=== PATIENT | male | born 1960 | race Caucasian/White ===

== ENCOUNTER 2023-03-20 10:33 | Outpatient (OUT) | payer OTHER, SELFPAY ==
--- NOTE | 2023-03-20 10:41 | XR_ITS ---
[facility] [place] [id number] Patient Name: MARIANGEL VOSS MRN: [id number] date: 1960 Sex: M Assigned Patient Location: RAD Current Patient Location: [facility] Accession/Order Number: [id number] Exam Date: 03/20/2023 10:47 Report Date: 03/20/2023 11:09 At the request of: TAL LANDEROS Procedure: XR knee RT 4V STUDY: XR knee RT 4V, [id number] HISTORY: Right Knee Sprain COMPARISON: None FINDINGS: No acute fracture, dislocation, or suspicious osseous lesion. No significant osteoarthritis. There is a trace knee joint effusion. XR/XR knee RT 4V IMPRESSION: Trace knee joint effusion without acute fracture. Electronically authenticated by: SIOBHAN CHILEL Date: 03/20/2023 11:09
== END 2023-03-20 10:34 | disposition home or self-care (01) ==
PROVIDERS: PCP Family Medicine; Visit Provider Nurse Practitioner Family
DX: S83.91XA Sprain of unspecified site of right knee, initial encounter (principal); M25.461 Effusion, right knee
CPT/HCPCS: 73564

== ENCOUNTER 2023-04-24 07:39 | Outpatient (OUT) | payer OTHER, SELFPAY ==
--- OUTSIDE RECORDS SUMMARY | 2023-04-24 07:40 | XMS_ITS | CCD ---
Author Name Unknown Address [address] [place] [address] Organization [facility] Care Team Providers Care [employer] Sales Supervisor Name Role Phone ClemenciaRavin mcgee Unavailable ROSITA SHEPPARD Attending Unavailable MARY ANNA Referring Unavailable MARY ANNA Primary Care Unavailable Medications Current Medications Medication Drug Class(es) Dates Sig (Normalized) Sig (Original) Advair Diskus 500-50 MCG/DOSE (2 sources) Start: 10-01-2017 take 1 puff(s) by inhalation twice daily Advair Diskus 500-50 MCG/DOSE 1 puff Inhalation Twice a day for 90 day(s) Sep, Active [id number] actuat albuterol 0.09 mg/actuat metered dose inhaler (5 sources) beta2-Adrenergic Agonist Start: 10-18-2020 take 2 puff(s) by inhalation every six hours as needed Albuterol Sulfate HFA 108 (90 Base) MCG/ACT 2 puffs as needed Inhalation every 6 hrs for 30 days Sep, Active Start: 10-18-2020 take 2 puff(s) by in halation every six hours as needed Albuterol Sulfate HFA 108 (90 Base) MCG/ACT 2 puffs as needed Inhalation every 6 hrs for 30 days Sep, Active 60 actuat fluticasone propionate 0.5 mg/actuat / salmeterol 0.05 mg/actuat dry powder inhaler (4 sources) Corticosteroid, beta2-Adrenergic Agonist Start: 10-01-2017 take 1 puff(s) by inhalation twice daily Wixela Inhub 500-50 MCG/ACT 1 puff Inhalation Twice a day for 90 days Mar, Active nystatin [id number] unt/ml oral suspension (5 sources) Polyene Antifungal Start: 10-20-2019 take 5 mL by mouth four times daily as needed Nystatin 013495 UNIT/ML 5 ml Mouth/Throat Four times a day for 10 day(s) prn Sep, Active Start: 10-20-2019 take 5 mL by mouth f our times daily Nystatin 845460 UNIT/ML 5 ml Mouth/Throat Four times a day for 10 day(s) Sep, Active omeprazole 20 mg delayed release oral capsule (5 sources) Proton Pump Inhibitor Start: 05-17-2010 take 1 capsule by mouth every twelve hours Omeprazole 20 mg 1 Capsule Orally twice a day for 90 days CESILIA Apr, Active Start: 05-17-2010 take 1 capsule by mo uth every twenty-four hours Omeprazole 20 mg 1 Capsule Orally Once a day for 90 day(s) Apr, Active Problems Active Problems Problem Classification Problem Date Documented Date Episodic/Chronic Asthma (8 sources) Uncomplicated mild persistent asthma; Translations: [Mild persistent asthma, uncomplicated] Onset: 10-31-2021 Resolved: 10-31-2021 Chronic Esophageal disorders (8 sources) Gastroesophageal reflux disease; Translations: [Gastro-esophageal reflux disease without esophagitis] Onset: 10-31-2021 Resolved: 10-31-2021 Chronic Other lower respiratory disease (4 sources) Multiple nodules of lung; Translations: [Lung nodules] Episodic Spondylosis; intervertebral disc disorders; other back problems (1 source) Backache Onset: 03-01-2023 Episodic Unclassified (1 source) Low back pain, unspecified; Translations: [Low back pain, unspecified] Onset: 03-01-2023 Past or Other Problems Problem Classification Problem Date Documented Da te Episodic/Chronic Mycoses (1 source) Candidal stomatitis Onset: 10-31-2021 Resolved: 10-31-2021 Episodic Results Test Name Value Interpretation Reference Range Facil ity COMPREHENSIVE METABOLIC PANE Roc 05-25-2021 Albumin [Mass/Vol] 4.6 g/dL Normal 3.6-5.1 [facility] Comment on above: Performed By: #### 5 927, 83022, 1883 #### [facility] [address], [address] [place] [id number] Firestopper Technician: Rigo Penaloza MD Albumin/Globulin [Mass ratio] 1.6 {ratio} Normal 1.0-2.5 [facility] Comment on above: Performed By: #### 5 363, 87907, 7600 #### [facility] of [address], [address] [place] [address] Firestopper Technician: Rigo Penaloza MD ALP [Catalytic activity/Vol] 53 U/L Normal 35-144 [facility] Comment on above: Performed By: #### 5 363, 40628, 7600 #### [facility] of [address], [address] [place] [address] Firestopper Technician: Rigo Penaloza MD ALT [Catalytic activity/Vol] 20 U/L Normal 9-46 [facility] Comment on above: Performed By: #### 5 363, 36326, 7600 #### [facility] [address], [address] [place] [address] Firestopper Technician: Rigo Penaloza MD AST [Catalytic activity/Vol] 18 U/L Normal 10-35 [facility] Comment on above: Performed By: #### 5 363, 93465, 7600 #### [facility] [address], [address] [place] [address] Firestopper Technician: Rigo Penaloza MD Bilirubin [Mass/Vol] 0.4 mg/dL Normal 0.2-1.2 [facility] Comment on above: Performed By: #### 5 363, 30505, 7600 #### [facility] [address], [address] [place] [address] Firestopper Technician: Rigo Penaloza MD BUN/CREATININE RATIO NOT APPLICABLE Normal 6-22 [facility] Comment on above: Performed By: #### 5 363, 84680, 7600 #### [facility] [place] [address] Firestopper Technician: Rigo Penaloza MD Calcium [Mass/Vol] 9.9 mg/dL Normal 8.6-10.3 [facility] Comment on above: Performed By: #### 5 363, 44627, 7600 #### [facility] [address], [address] [place] [address] Firestopper Technician: Rigo Penaloza MD Chloride [Moles/Vol] 101 mmol/L Normal 98-110 [facility] Comment on above: Performed By: #### 5 363, 74458, 7600 #### [facility] [address], [address] [place] [address] Firestopper Technician: Rigo Penaloza MD CO2 [Moles/Vol] 27 mmol/L Normal 20-32 [facility] Comment on above: Performed By: #### 5 363, 35530, 7600 #### [facility] [address], [address] [place] [address] Firestopper Technician: Rigo Penaloza MD Creatinine [Mass/Vol] 0.89 mg/dL Normal 0.70-1.33 [facility] Comment on above: Result Comment: For patients >49 years of age, the reference limit for Creatinine is approximately 13% higher for people identified as -Bhutanese. Performed By: #### 5 363, 88232, 7600 #### [facility] [address], [address] [place] [address] Firestopper Technician: Rigo Penaloza MD eGFR NON-AFR. FRENCH 94 mL/min/1.73m2 Normal > OR = 60 [facility] Comment on above: Performed By: #### 5 363, 24244, 7600 #### [facility] [address], [address] [place] [address] Firestopper Technician: Rigo Penaloza MD GFR/1.73 sq M.predicted among blacks MDRD (S/P/Bld) [Vol rate/Area] 108 mL/min/{1.73_m2} Normal > OR = 60 [facility] Comment on above: Performed By: #### 5 363, 28667, 7600 #### [facility] [address], [address] [place] [address] Firestopper Technician: Rigo Penaloza MD Globulin (S) [Mass/Vol] 2.9 g/dL Normal 1.9-3.7 [facility] Comment on above: Performed By: #### 5 363, 11219, 7600 #### [facility] [place] [address] Firestopper Technician: Rigo Penaloza MD Glucose [Mass/Vol] 89 mg/dL Normal 65-99 [facility] Comment on above: Result Comment: Fasting reference interval Performed By: #### 5 363, 63396, 7600 #### [facility] [place] [address] Firestopper Technician: Rigo Penaloza MD Potassium [Moles/Vol] 4.5 mmol/L Normal 3.5-5.3 [facility] Comment on above: Performed By: #### 5 363, 19086, 7600 #### [facility] [place] [address] Firestopper Technician: Rigo Penaloza MD Protein [Mass/Vol] 7.5 g/dL Normal 6.1-8.1 [facility] Comment on above: Performed By: #### 5 363, 29391, 7600 #### [facility] [place] [address] Firestopper Technician: Rigo Penaloza MD Sodium [Moles/Vol] 138 mmol/L Normal 135-146 [facility] Comment on above: Performed By: #### 5 363, 94828, 7600 #### [facility] [place] [address] Firestopper Technician: Rigo Penaloza MD Urea nitrogen [Mass/Vol] 13 mg/dL Normal 7-25 [facility] Comment on above: Performed By: #### 5 363, 51416, 7600 #### [facility] [place] [address] Firestopper Technician: Rigo Penaloza MD LIPID PANEL, [facility] 03-3 Cholesterol [Mass/Vol] 226 mg/dL High <200 [facility] Comment on above: Order Comment: FASTI NG:YES FASTING: YES Performed By: #### 5 363, 67089, 7600 #### [facility] [address], [address] [place] [address] Firestopper Technician: Rigo Penaloza MD Cholesterol in HDL [Mass/Vol] 49 mg/dL Normal > OR = 40 [facility] Comment on above: Order Comment: FASTI NG:YES FASTING: YES Performed By: #### 5 363, 80696, 7600 #### [facility] [address], [address] [place] [address] Firestopper Technician: Rigo Penaloza MD Cholesterol in LDL [Mass/Vol] 150 mg/dL High [facility] Comment on above: Order Comment: FASTI NG:YES FASTING: YES Result Comment: Refe rence range: <100 Desirable range <100 mg/dL for primary prevention; <70 mg/dL for patients with CHD or diabetic patients with > or = 2 CHD risk factors. LDL-C is now calculated using the Alyssa calculation, which is a validated novel method providing better accuracy than the Friedewald equation in the estimation of LDL-C. Barney KERNS et al. ADRIAN. 2013;310(19): 5048-1117 (http://education.ice.DataLocker/faq/RVE285) Performed By: #### 5 363, 34381, 7600 #### [facility] [address], [address] [place] [address] Firestopper Technician: Rigo Penaloza MD Cholesterol.total/C holesterol in HDL [Mass ratio] 4.6 {ratio} Normal <5.0 [facility] Comment on above: Order Comment: FASTI NG:YES FASTING: YES Performed By: #### 5 363, 70316, 7600 #### [facility] [address], [address] [place] [address] Firestopper Technician: Rigo Penaloza MD NON HDL CHOLESTEROL 177 mg/dL (calc) High <130 [facility] Comment on above: Order Comment: FASTI NG:YES FASTING: YES Result Comment: For patients with diabetes plus 1 major ASCVD risk factor, treating to a non-HDL-C goal of <100 mg/dL (LDL-C of <70 mg/dL) is considered a therapeutic option. Performed By: #### 5 363, 47858, 7600 #### [facility] [address], [address] [place] [address] Firestopper Technician: Rigo Penaloza MD Triglyceride [Mass/Vol] 145 mg/dL Normal <150 [facility] Comment on above: Order Comment: FASTI NG:YES FASTING: YES Performed By: #### 5 363, 15747, 7600 #### [facility] [address], [address] [place] [address] Firestopper Technician: Rigo Penaloza MD PSA, TOTALon 05-25-2021 PSA, TOTAL 0.64 ng/mL Normal < OR = 4.00 [facility] Comment on above: Result Comment: The total PSA value from this assay system is standardized against the WHO standard. The test result will be approximately 20% lower when compared to the equimolar-standardized total PSA (Ricky Matt). Comparison of serial PSA results should be interpreted with this fact in mind. This test was performed using the Siemens chemiluminescent method. Values obtained from different assay methods cannot be used interchangeably. PSA levels, regardless of value, should not be interpreted as absolute evidence of the presence or absence of disease. Performed By: #### 5 363, 91948, 7600 #### [facility] [address], [address] [place] [address] Firestopper Technician: Rigo Penaloza MD Vital Signs Date Time Vital Sign Value Performing Clinician Leo herron 10-31-2021 17:00-0400 Body height 182.88 cm Ravin Khanna Other [facility] Other 10-31-2021 17:00-0400 Body mass index (BMI) [Ratio] 27.26 kg/m2 Ravin Khanna Other [facility] Other 10-31-2021 17:00-0400 Body temperature 97.3 [degF] Ravin Khanna Other [facility] Other 10-31-2021 17:00-0400 Body weight 91.17 kg Janer Clemencia Other [facility] Other 10-31-2021 17:00-0400 Diastolic blood pressure 77 mm[Hg] Janer Clemencia Other [facility] Other 10-31-2021 17:00-0400 Respiratory rate 20 /min Janer Clemencia Other [facility] Other 10-31-2021 17:00-0400 SaO2% (BldA) [Mass fraction] 98 % Janer Clemencia Other [facility] Other 10-31-2021 17:00-0400 Systolic blood pressure 123 mm[Hg] Janer Clemencia Other [facility] Other Encounters Encounter Date Encounter Type Care Provider Facility Start: 03-29-2023 End: 03-29-2023 ambulatory Janer Clemencia Other [facility] Other Start: 03-29-2023 Telephone encounter Ravin vuongo [facility] Start: 03-26-2023 End: 03-26-2023 ambulatory Christanumer Clemencia Other [facility] Other Start: 03-26-2023 Telephone encounter Ravin vuongo [facility] Start: 03-01-2023 End: 03-01-2023 ambulatory [facility] Start: 08-13-2022 End: 08-13-2022 ambulatory Christanumer Clemencia Other [facility] Other Start: 08-13-2022 Telephone encounter Ravin paul [facility] Start: 05-14-2022 End: 05-14-2022 ambulatory Ravin Kahnna Other [facility] Other Start: 05-14-2022 Telephone encounter Ravin paul [facility] Start: 10-31-2021 End: 10-31-2021 ambulatory Ravin Khanna Other [facility] Other Start: 10-31-2021 Office outpatient visit 15 minutes Ravin Khanna [facility] Immunizations Immunization Date Immunization Notes Care Provider Fa cility 08-24-2021 COVID-19 Vaccine Moderna - Documentation Purposes Only Ravin Khanna Other [facility] Other 01-04-2021 COVID-19 Vaccine Moderna - Documentation Purposes Only Ravin Khanna Other [facility] Other 05-20-2020 COVID-19 Moderna Ravin Oquendodano Other [facility] Other 04-14-2020 COVID-19 Moderna Ravin Oquendodano Other [facility] Other Payers Date Payer Category Payer Private Health Insurance [id number] 2018 Unknown [id number] 1960 Unknown [id number] Social History Date Type Detail Facility Unknown if ever smoked [facility] Other Sex Assigned At Sex Assigned At Bir th [facility] Other Evaluation note 03-26-2023 Note Date & Type Note Facility 03-26-2023 Evaluation note Encounter Date Diagnosis Assessment Notes Feb, Mild persistent asthma, uncomplicated (ICD-10 - J45.30) Feb, Gastroesophageal reflux disease (ICD-10 - K21.9) [facility] Other Evaluation note 08-13-2022 Note Date & Type Note Facility 08-13-2022 Evaluation note Encounter Date Diagnosis Assessment Notes Jul, Mild persistent asthma, uncomplicated (ICD-10 - J45.30) [facility] Other Evaluation note 05-14-2022 Note Date & Type Note Facility 05-14-2022 Evaluation note Encounter Date Diagnosis Assessment Notes Apr, Gastroesophageal reflux disease (ICD-10 - K21.9) [facility] Other Evaluation note 10-31-2021 Note Date & Type Note Facility 10-31-2021 Evaluation note Encounter Date Diagnosis Assessment Notes Oct, Mild persistent asthma, uncomplicated (ICD-10 - J45.30) Oct, Gastroesophageal reflux disease (ICD-10 - K21.9) Oct, Oropharyngeal candidiasis (ICD-10 - B37.0) [facility] Other History general Narrative - Reported 03-04-2021 Note Date & Type Note Facility 03-04-2021 History general N arrative - Reported Type Medical History asthma Medical History Esophageal reflux Medical History Covid positive 03/04/2021 and 10/18 Surgical History HERNIA Surgical History CYSTECTOMY [facility] Other Evaluation note Note Date & Type Note Facility Evaluation note No Information [facility] Other Summary Purpose Family History No Family History Records FoundNo Family History Records Found Advance Directives No Advanced Directives Records FoundNo Advanced Directives Records Found Additional Source Comments (unrecognized sect ion and content) No Status Records FoundNo Status Records Found INFORMATION SOURCE (unrecogn ized section and content) DATE CREATED AUTHOR 05/26/2021 [facility] DATE CREATED AUTHOR AUTHOR'S ORGANIZ ATION 03/03/2023 [facility] REASON FOR VISIT (unrecogniz ed section and content) 1 year f/urefillRefills- Adv airNo [id number] Days FOR RECORDS PERTAINING TO PATIENTS WHO ARE OR HAVE BEEN ENROLLED IN A CHEMICAL DEPENDENCY/SUBSTANCEABUSE PROGRAM, SOME INFORMATION MAY BE OMITTED. This clinical summary was aggregated from multiple sources. Caution should be exercised in using it in the provision of clinical care. This summary normalizes information from multiple sources, and as a consequence, information in this document may materially change the coding, format and clinical context of patient data. In addition, data may be omitted in some cases. CLINICAL DECISIONS SHOULD BE BASED ON THE PRIMARY CLINICAL RECORDS. [facility]. provides no warranty or guarantee of the accuracy or completeness of information in this document.
--- NOTE | 2023-04-24 07:41 | MR_ITS ---
[address] [address] Patient Name: MARIANGEL VOSS MRN: [id number] date: 1960 Sex: M Assigned Patient Location: MRI Current Patient Location: MRI Accession/Order Number: [id number] Exam Date: 04/24/2023 08:10 Report Date: 04/24/2023 10:18 At the request of: TAL LANDEROS Procedure: MR knee RT wo con EXAMINATION: MR knee RT wo con HISTORY: Right Knee Sprain S83.91XA COMPARISON: No relevant comparison available. TECHNIQUE: A complete multi-planar MRI was performed. FINDINGS: MEDIAL COMPARTMENT MEDIAL MENISCUS: Increased signal in the posterior horn consistent with myxoid degeneration, but no rafa tear. CARTILAGE: No visible defect. BONES: No marrow pathology, fracture, or significant arthropathy. MCL AND MEDIAL CAPSULE: Normal medial collateral ligament and medial capsule. LATERAL COMPARTMENT LATERAL MENISCUS: No visible tear or significant degeneration. CARTILAGE: No visible defect. BONES: No marrow pathology, fracture, or significant arthropathy. LCL/POSTEROLAT COMPLEX: Normal lateral collateral ligament, fascicles, lateral capsule and ligaments. ANTERIOR COMPARTMENT PATELLA: No marrow pathology, fracture, or significant arthropathy. CARTILAGE: Grade IV chondromalacia lateral patellar facet TENDONS: Normal. EFFUSION: None. No synovitis or loose bodies. ACL: Increased signal and thickening mid to distal ligament PCL: Normal appearing ligament. MENISCOFEMORAL: Normal meniscofemoral ligaments. OTHER: Negative. MR/MR knee RT wo con IMPRESSION: Sprain of the mid to distal anterior cruciate ligament Grade IV chondromalacia lateral patellar facet Electronically authenticated by: MCKAY CARPENTER Date: 04/24/2023 10:18
--- NOTE | 2023-04-24 07:51 | XR_ITS ---
[address] [address] Patient Name: MARIANGEL VOSS MRN: [id number] date: 1960 Sex: M Assigned Patient Location: MRI Current Patient Location: MRI Accession/Order Number: [id number] Exam Date: 04/24/2023 07:55 Report Date: 04/24/2023 08:04 At the request of: TAL LANDEROS Procedure: XR foreign body eye EXAMINATION: XR foreign body eye HISTORY: Foreign Body Eye COMPARISON: No relevant comparison available. FINDINGS: ORBITS: Negative for a metallic foreign body. OTHER: Negative. XR/XR foreign body eye IMPRESSION: No metallic foreign body in the orbits Electronically authenticated by: MCKAY CARPENTER Date: 04/24/2023 08:04
== END 2023-04-24 07:40 | disposition home or self-care (01) ==
LOC: MRI 07:39
PROVIDERS: PCP Family Medicine; Visit Provider Nurse Practitioner Family
DX: S83.91XA Sprain of unspecified site of right knee, initial encounter (principal)
CPT/HCPCS: 70030; 73721

== ENCOUNTER 2023-05-22 15:15 | Outpatient (RCR) | payer OTHER, SELFPAY | END 2023-06-08 15:57 | disposition home or self-care (01) | LOC: PT 15:15 | PROVIDERS: PCP Family Medicine; Visit Provider Nurse Practitioner Family | DX: S83.91XD Sprain of unspecified site of right knee, subsequent encounter (principal) | CPT/HCPCS: 97010; 97014; 97035; 97110; 97140; 97162 ==

== ENCOUNTER 2023-11-29 09:14 | Outpatient (OUT) | payer OTHER, SELFPAY ==
--- OUTSIDE RECORDS SUMMARY | 2023-11-29 09:26 | XMS_ITS | CCD ---
Author Organization [facility] Inform ion Partnership [facility] Care Team Providers Care Stratigrapher Name Role Phone Ravin Khanna ROSITA SHEPPARD Attending Unavailable FURLONG, VIN Moore Referring Unavailable FURLONG, VIN G Primary Care Unavailable DORIS ALLEN Attending Unavailable FURLONG, VIN G Referring Unavailable FURLONG, VIN G Primary Care Unavailable DORIS ALLEN Attending Unavailable FURLONG, VIN G Referring Unavailable FURLONG, VIN G Primary Care Unavailable FURLONG, VIN G Attending Unavailable FURLONG, VIN G Referring Unavailable FURLONG, VIN G Primary Care Unavailable FURLONG, VIN G Referring Unavailable FURLONG, VIN G Primary Care Unavailable Medications Current Medications Medication Drug Class(es) Dates Sig (Normalized) Sig (Original) Advair Diskus 500-50 MCG/DOSE (2 sources) Start: 10-01-2017 take 1 puff(s) by inhalation twice daily Advair Diskus 500-50 MCG/DOSE 1 puff Inhalation Twice a day for 90 day(s) Sep, Active [id number] 200 actuat albuterol 0.09 mg/actuat metered dose inhaler (7 sources) beta2-Adrenergic Agonist Start: 10-16-2023 End: 10-29-2023 take 2 puff(s) by inhalation every six hours as needed Albuterol Sulfate Active 2 PUFF INHALATION Every 6 hours October 29, 2023 3:37pm [employer] puffs as needed Inhalation every 6 hrs; Note: Source Status: Taking; Refills: 11; Provider: Clemencia Dotson Start: 10-18-2020 take 2 puff(s) by in [...] 6 hrs for 30 days Sep, Active Fluticasone Propion-Salmeterol (5 sources) Corticosteroid, beta2-Adrenergic Agonist Start: 10-16-2023 Fluticasone Propion-Salmeterol (Wixela Inhub) 500-50 mcg/dose blister with device Active 1 INH INHALATION Twice daily October 16, 2023 12:00am Start: 10-01-2017 take 1 puff(s) by in halation twice daily Wixela Inhub 500-50 MCG/ACT 1 puff Inhalation Twice a day for 90 days Mar, Active naratriptan 2.5 mg oral tablet (1 source) Serotonin-1b and Serotonin-1d Receptor Agonist Start: 10-29-2023 take 2.5 mg by mouth once Naratriptan Active 2.5 MG PO Once October 29, 2023 12:00am nystatin [id number] unt/ml oral suspension (5 sources) Polyene Antifungal Start: 10-20-2019 take 5 mL by mouth four times daily as needed Nystatin [id number] UNIT/ML 5 ml Mouth/Throat Four times a day for 10 day(s) prn Sep, Active Start: 10-20-2019 take 5 mL by mouth f our times daily Nystatin 203208 UNIT/ML 5 ml Mouth/Throat Four times a day for 10 day(s) Sep, Active omeprazole 20 mg delayed release oral capsule (6 sources) Proton Pump Inhibitor Start: 10-16-2023 take 1 capsule by mouth twice daily Omeprazole Active 1 CAP PO Twice daily October 16, 2023 12:00am [employer] Capsule Orally twice a day; Note: Source Status: TakingDAW; Refills: 3; Provider: Clemencia Dotson Start: 05-17-2010 take 1 capsule by [facility] every twelve hours Omeprazole 20 mg 1 Capsule Orally twice a day for 90 days CESILIA Apr, Active Start: 05-17-2010 take 1 capsule by [facility] every twenty-four hours Omeprazole 20 mg 1 Capsule Orally Once a day for 90 day(s) Apr, Active Problems Active Problems Problem Classification Problem Date Documented Date Episodic/Chronic Asthma (10 sources) Uncomplicated mild persistent asthma; Translations: [Mild persistent asthma, uncomplicated] Onset: 10-31-2021 Resolved: 10-31-2021 Chronic Bacterial infection; unspecified site (1 source) Other specified bacterial agents as the cause of diseases classified elsewhere; Translations: [Other specified bacterial agents as the cause of diseases classified elsewhere] Onset: 10-01-2023 Episodic Esophageal disorders (10 sources) Gastroesophageal reflux disease; Translations: [Gastro-esophageal reflux disease without esophagitis] Onset: 10-31-2021 Resolved: 10-31-2021 Chronic Headache; including migraine (2 sources) Migraine with aura, not intractable, without status migrainosus; Translations: [Cluster headache syndrome, unspecified, not intractable] Onset: 10-01-2023 Chronic Headache; including migraine (1 source) Headache Onset: 10-01-2023 Episodic Other lower respiratory disease (4 sources) Multiple nodules of lung; Translations: [Lung nodules] Episodic Other screening for suspected conditions (not mental disorders or infectious disease) (2 sources) Encounter for screening for malignant neoplasm of prostate; Translations: [Encounter for screening for malignant neoplasm of prostate] Onset: 11-11-2023 Episodic Other upper respiratory infections (1 source) Acute sinusitis, unspecified; Translations: [Acute sinusitis, unspecified] Onset: 10-01-2023 Episodic Unclassified (1 source) Annual Exam Onset: 11-11-2023 Unclassified (1 source) Low back pain, unspecified; Translations: [Low back pain, unspecified] Onset: 03-01-2023 Past or Other Problems Problem Classification Problem Date Documented Da te Episodic/Chronic Mycoses (1 source) Candidal stomatitis Onset: 10-31-2021 Resolved: 10-31-2021 Episodic Other nutritional; endocrine; and metabolic disorders (1 source) Overweight; Translations: [Overweight] Onset: 01-12-2022 Episodic Spondylosis; intervertebral disc disorders; other back problems (1 source) Backache Onset: 03-01-2023 Episodic Results Test Name Value Interpretation Reference Range Facility COMPREHENSIVE METABOLIC PANE Roc 11-11-2023 Albumin [Mass/Vol] 4.6 g/dL Normal 3.2-5.3 [facility] Comment on above: Performed By: #### C JAYDON, 2857-1, 48039-8 #### [facility] ([id number]) [address], [address] [place] [address] ALP [Catalytic activity/Vol] 44 U/L Normal 39-130 [facility] Comment on above: Performed By: #### Humaira INTERIANO, 2857-1, 88086-1 #### [facility] ([id number]) [address], [address] [place] [address] ALT [Catalytic activity/Vol] 24 U/L Normal 0-40 [facility] Comment on above: Performed By: #### Humaira INTERIANO, 2857-1, 52900-7 #### [facility] ([id number]) [address], [address] [place] [address] Anion gap [Moles/Vol] 11 mmol/L Normal 5-15 [facility] Comment on above: Performed By: #### C JAYDON, 2857-1, 41556-8 #### [facility] ([id number]) [address], [address] [place] [address] AST [Catalytic activity/Vol] 24 U/L Normal 0-41 [facility] Comment on above: Performed By: #### Humaira INTERIANO, 2857-1, 01102-9 #### [facility] ([id number]) [address], [address] [place] [address] Bilirubin [Mass/Vol] 0.5 mg/dL Normal 0.3-1.2 [facility] Comment on above: Performed By: #### Humaira INTERIANO, 2857-1, 69362-6 #### [facility] ([id number]) [address], [address] [place] [address] Calcium [Mass/Vol] 9.6 mg/dL Normal 8.5-10.5 [facility] Comment on above: Performed By: #### Humaira INTERIANO, 2857-1, 26890-8 #### [facility] ([id number]) [address], [address] [place] [address] Chloride [Moles/Vol] 101 mmol/L Normal 98-109 [facility] Comment on above: Performed By: #### Humaira INTERIANO, 2857-1, 69804-2 #### [facility] ([id number]) [address], [address] [place] [address] CO2 [Moles/Vol] 26 mmol/L Normal 22-32 [facility] Comment on above: Performed By: #### Humaira INTERIANO, 2857-1, 72299-8 #### [facility] ([id number]) [address], [address] [place] [address] Creatinine [Mass/Vol] 0.81 mg/dL Normal 0.60-1.30 [facility] Comment on above: Result Comment: METH OD TRACEABLE TO IDMS STANDARD Performed By: #### Humaira INTERIANO, 2856-, 98535-2 #### [facility] ([id number]) [address], [address] [place] [address] eGFR (CKD-EPI) NON-RACE DEPENDENT >90 Normal >59 [facility] Comment on above: Result Comment: Reported eGFR is based on the CKD-EPI 1 equation that does not use a race coefficient. Performed By: #### Humaira INTERIANO, 2857-1, 36788-8 #### [facility] ([id number]) [address], [address] [place] [address] Glucose [Mass/Vol] 92 mg/dL Normal 65-99 [facility] Comment on above: Performed By: #### Humaira INTERIANO, 2857-1, 49834-6 #### [facility] ([id number]) [address], [address] [place] [address] Potassium [Moles/Vol] 4.1 mmol/L Normal 3.5-5.0 [facility] Comment on above: Performed By: #### Humaira INTERIANO, 2857-1, 86069-0 #### [facility] ([id number]) [address], [address] [place] [address] Protein [Mass/Vol] 7.9 g/dL Normal 6.0-8.0 [facility] Comment on above: Performed By: #### Humaira INTERIANO, 2857-1, 30152-4 #### [facility] ([id number]) [address], [facility] [address] [place] [address] Sodium [Moles/Vol] 138 mmol/L Normal 134-146 [facility] Comment on above: Performed By: #### Humaira INTERIANO, 2857-1, 68155-6 #### [facility] ([id number]) [address], [address] [place] [address] Urea nitrogen [Mass/Vol] 10 mg/dL Normal 5-27 [facility] Comment on above: Performed By: #### Humaira INTERIANO, 2857-1, 08496-3 #### [facility] ([id number]) [address], [address] [place] [address] Lipid 1996 panelon 4 Cholesterol [Mass/Vol] 186 mg/dL Normal 150-200 [facility] Comment on above: Performed By: #### Humaira INTERIANO, 2857-1, 01512-6 #### [facility] ([id number]) [address], [address] [place] [address] Cholesterol in HDL [Mass/Vol] 57 mg/dL Normal >39 [facility] Comment on above: Result Comment: HDL <40 mg/dL - High Risk HDL > or = 40mg/dL- Desirable HDL >60 mg/dL - Negative Risk Performed By: #### Humaira INTERIANO, 2857-1, 32293-7 #### [facility] ([id number]) [address] [address] Cholesterol in LDL [Mass/Vol] 108 mg/dL Normal <130 [facility] Comment on above: Result Comment: LDL <100 mg/dL - Desirable LDL >160 mg/dL - High Risk Performed By: #### Humaira INTERIANO, 2857-1, 68587-9 #### [facility] ([id number]) [address] [address] Cholesterol in VLDL [Mass/Vol] 21 mg/dL Normal 0-30 [facility] Comment on above: Performed By: #### Humaira INTERIANO, 2857-1, 01812-6 #### [facility] ([id number]) [address] [address] CHOLESTEROL:HDL 3.3 Normal 1.0-5.0 [facility] Comment on above: Performed By: #### Humaira INTERIANO, 2857-1, 47723-6 #### [facility] ([id number]) [address] [address] Triglyceride [Mass/Vol] 107 mg/dL Normal 27-150 [facility] Comment on above: Performed By: #### Humaira INTERIANO, 2857-1, 35465-8 #### [facility] ([id number]) [address] [address] Prostate specific Ag [Mass/V ol]on 11-11-2023 PSA SCREEN 1.28 ng/mL Normal 0.00-4.00 [facility] Comment on above: Result Comment: The method used for this test is Ricky [employer] DXI chemiluminescent immunoassay. Values obtained by different assay methods cannot be used interchangeably. Performed By: #### C , 2857-1, 56631-0 #### [facility] ([id number]) [address] [place] [address], [address] 05-25-2021 Albumin [Mass/Vol] 4.6 g/dL Normal 3.6-5.1 [facility] Comment on above: Performed By: #### 5 363, 24109, 7600 #### [facility] of [address], [address] [place] [address] Taxi Dancer: Rigo Penaloza MD Albumin/Globulin [Mass ratio] 1.6 {ratio} Normal 1.0-2.5 [facility] Comment on above: Performed By: #### 5 363, 00491, 7600 #### [facility] [place] [address] Taxi Dancer: Rigo Penaloza MD ALP [Catalytic activity/Vol] 53 U/L Normal 35-144 [facility] Comment on above: Performed By: #### 5 363, 00742, 0 #### [facility] [place] [address] Taxi Dancer: Rigo Penaloza MD ALT [Catalytic activity/Vol] 20 U/L Normal 9-46 [facility] Comment on above: Performed By: #### 5 363, 78973, 0 #### [facility] [place] [address] Taxi Dancer: Rigo Penaloza MD AST [Catalytic activity/Vol] 18 U/L Normal 10-35 [facility] Comment on above: Performed By: #### 5 363, 97353, 7600 #### [facility] [place] [address] Taxi Dancer: Rigo Penaloza MD Bilirubin [Mass/Vol] 0.4 mg/dL Normal 0.2-1.2 [facility] Comment on above: Performed By: #### 5 363, 09011, 7600 #### [facility] of [address], [address] [place] [address] Taxi Dancer: Rigo Penaloza MD BUN/CREATININE RATIO NOT APPLICABLE Normal 6-22 [facility] Comment on above: Performed By: #### 5 363, 33315, 7600 #### [facility] of [address], [address] [place] [address] Taxi Dancer: Rigo Penaloza MD Calcium [Mass/Vol] 9.9 mg/dL Normal 8.6-10.3 [facility] Comment on above: Performed By: #### 5 363, 53160, 7600 #### [facility] of [address], [address] [place] [address] Taxi Dancer: Rigo Penaloza MD Chloride [Moles/Vol] 101 mmol/L Normal 98-110 [facility] Comment on above: Performed By: #### 5 363, 71830, 7600 #### [facility] of [address], [address] [place] [address] Taxi Dancer: Rigo Penaloza MD CO2 [Moles/Vol] 27 mmol/L Normal 20-32 [facility] Comment on above: Performed By: #### 5 363, 48520, 7600 #### [facility] of [address], [address] [place] [address] Taxi Dancer: Rigo Penaloza MD Creatinine [Mass/Vol] 0.89 mg/dL Normal 0.70-1.33 [facility] Comment on above: Result Comment: For patients >49 years of age, the reference limit for Creatinine is approximately 13% higher for people identified as -Algerian. Performed By: #### 5 363, 60481, 7600 #### [facility] of [address], [address] [place] [address] Taxi Dancer: Rigo Penaloza MD eGFR NON-AFR. BRUNEIAN 94 mL/min/1.73m2 Normal > OR = 60 [facility] Comment on above: Performed By: #### 5 363, 22301, 7600 #### [facility] [address] [address] Taxi Dancer: Rigo Penaloza MD GFR/1.73 sq M.predicted among blacks MDRD (S/P/Bld) [Vol rate/Area] 108 mL/min/{1.73_m2} Normal > OR = 60 [facility] Comment on above: Performed By: #### 5 363, 33772, 7600 #### [facility] [address], [address] [place] [address] Taxi Dancer: Rigo Penaloza MD Globulin (S) [Mass/Vol] 2.9 g/dL Normal 1.9-3.7 [facility] Comment on above: Performed By: #### 5 363, 18451, 7600 #### [facility] [place] [address] Taxi Dancer: Rigo Penaloza MD Glucose [Mass/Vol] 89 mg/dL Normal 65-99 [facility] Comment on above: Result Comment: Fasting reference interval Performed By: #### 5 363, 07219, 7600 #### [facility] [place] [address] Taxi Dancer: Rigo Penaloza MD Potassium [Moles/Vol] 4.5 mmol/L Normal 3.5-5.3 [facility] Comment on above: Performed By: #### 5 363, 73248, 7600 #### [facility] [place] [address] Taxi Dancer: Rigo Penaloza MD Protein [Mass/Vol] 7.5 g/dL Normal 6.1-8.1 [facility] Comment on above: Performed By: #### 5 363, 85649, 7600 #### [facility] [place] [address] Taxi Dancer: Rigo Penaloza MD Sodium [Moles/Vol] 138 mmol/L Normal 135-146 [facility] Comment on above: Performed By: #### 5 363, 90301, 7600 #### [facility] [place] [address] Taxi Dancer: Rigo Penaloza MD Urea nitrogen [Mass/Vol] 13 mg/dL Normal 7-25 [facility] Comment on above: Performed By: #### 5 363, 91583, 7600 #### [facility] [address], [address] [place] [address] Taxi Dancer: Rigo Penaloza MD LIPID PANEL, [facility] 03-3 Cholesterol [Mass/Vol] 226 mg/dL High <200 [facility] Comment on above: Order Comment: FASTI NG:YES FASTING: YES Performed By: #### 5 363, 27728, 7600 #### [facility] [address], [address] [place] [address] Taxi Dancer: Rigo Penaloza MD Cholesterol in HDL [Mass/Vol] 49 mg/dL Normal > OR = 40 [facility] Comment on above: Order Comment: FASTI NG:YES FASTING: YES Performed By: #### 5 363, 25853, 0 #### [facility] [address], [address] [place] [address] Taxi Dancer: Rigo Penaloza MD Cholesterol in LDL [Mass/Vol] 150 mg/dL High [facility] Comment on above: Order Comment: [...] LDL-C. Barney KERNS et al. ADRIAN. 2013;310(19): 6596-6139 (http://education.Dial2Do.[employer]/faq/DLP402) Performed By: #### 5 363, 59350, 7600 #### [facility] [address], [address] [place] [address] Taxi Dancer: Rigo Penaloza MD Cholesterol.total/C holesterol in HDL [Mass ratio] 4.6 {ratio} Normal <5.0 [facility] Comment on above: Order Comment: FASTI NG:YES FASTING: YES Performed By: #### 5 363, 70359, 7600 #### [facility] [address], [address] [place] [address] Taxi Dancer: Rigo Penaloza MD NON HDL CHOLESTEROL 177 mg/dL (calc) High <130 [facility] Comment on above: Order Comment: FASTI NG:YES FASTING: YES Result Comment: For patients with diabetes plus 1 major ASCVD risk factor, treating to a non-HDL-C goal of <100 mg/dL (LDL-C of <70 mg/dL) is considered a therapeutic option. Performed By: #### 5 363, 15234, 7600 #### [facility] [address], [address] [place] [address] Taxi Dancer: Rigo Penaloza MD Triglyceride [Mass/Vol] 145 mg/dL Normal <150 [facility] Comment on above: Order Comment: FASTI NG:YES FASTING: YES Performed By: #### 5 363, 84997, 7600 #### [facility] [address], [address] [place] [address] Taxi Dancer: Rigo Penaloza MD PSA, TOTALon 05-25-2021 PSA, TOTAL 0.64 ng/mL Normal < OR = 4.00 [facility] Comment on above: Result Comment: The total PSA value from this assay system is standardized against the WHO standard. The test result will be approximately 20% lower when compared to the equimolar-standardized total PSA ([place]). Comparison of serial PSA results should be interpreted with this fact in mind. This test was performed using the Siemens chemiluminescent method. Values obtained from different assay methods cannot be used interchangeably. PSA levels, regardless of value, should not be interpreted as absolute evidence of the presence or absence of disease. Performed By: #### 5 363, 75007, 7600 #### [facility] [address], [address] [place] [address] Taxi Dancer: Rigo Penaloza MD Vital Signs Date Time Vital Sign Value Performing Clinician Faci lity 10-29-2023 15:46-0400 Body height 182.88 cm [facility] 10-29-2023 15:46-0400 Body mass index (BMI) [Ratio] 27.4 kg/m2 [facility] 10-29-2023 15:46-0400 Body temperature 98.8 [degF] [facility] 10-29-2023 15:46-0400 Body weight 91.85 kg [facility] 10-29-2023 15:46-0400 Heart rate 75 /min [facility] 10-29-2023 15:46-0400 Respiratory rate 20 /min [facility] 10-29-2023 15:46-0400 SaO2% (BldA) [Mass fraction] 96 % [facility] 10-31-2021 17:00-0400 Body height 182.88 cm Ravin Khanna Other [facility] Other 10-31-2021 17:00-0400 Body mass index (BMI) [Ratio] 27.26 kg/m2 Ravin Khanna Other [facility] [facility] Other 10-31-2021 17:00-0400 Body temperature 97.3 [degF] Ravin Khanna Other [facility] Other 10-31-2021 17:00-0400 Body weight 91.17 kg Ravin Khanna Other [facility] Other 10-31-2021 17:00-0400 Diastolic blood pressure 77 mm[Hg] Ravin Oquendodano Other [facility] Other 10-31-2021 17:00-0400 Respiratory rate 20 /min Ravin Thorpeno Other [facility] Other 10-31-2021 17:00-0400 SaO2% (BldA) [Mass fraction] 98 % Ravin Khanna Other [employer] [facility] Other 10-31-2021 17:00-0400 Systolic blood pressure 123 mm[Hg] Ravin Khanna Other [facility] Other Encounters Encounter Date Encounter Type Care Provider Facility Start: 11-11-2023 End: 11-11-2023 ambulatory [facility] Start: 11-11-2023 Encounter for genera l adult medical examination without abnormal findings [facility] Start: 11-11-2023 End: 11-11-2023 ambulatory [facility] Start: 11-11-2023 Encounter for genera l adult medical examination without abnormal findings [facility] Start: 10-30-2023 End: 10-30-2023 ambulatory [facility] Start: 10-29-2023 End: 10-29-2023 ambulatory [facility] Work Phone: Start: 10-29-2023 End: 10-29-2023 Patient encounter procedure [facility] Work Phone: Start: 10-01-2023 End: 10-01-2023 ambulatory [facility] Start: 03-29-2023 End: 03-29-2023 ambulatory Ravin Khanna Other [facility] [facility] Other Start: 03-29-2023 Telephone encounter Ravin paul [facility] Start: 03-26-2023 End: 03-26-2023 ambulatory Ravin Khanna Other [facility] Other Start: 03-26-2023 Telephone encounter Ravin paul [facility] Start: 03-01-2023 End: 03-01-[address] [facility] Start: 08-13-2022 End: 08-13-2022 ambulatory Christalexandra Oquendodano Other [facility] Other Start: 08-13-2022 Telephone encounter Ravin vuongo [facility] Start: 05-14-2022 End: 05-14-2022 ambulatory Christanumer Clemencia Other [facility] Other Start: 05-14-2022 Telephone encounter Ravin vuongo [facility] Start: 10-31-2021 End: 10-31-2021 ambulatory Christanumer Clemencia Other [facility] Other Start: 10-31-2021 Office outpatient visit 15 minutes Christopher Clemencia [facility] Procedures Date Procedure Procedure Detail Performing Clinician Start: 10-30-2023 Follow-up visit Follow-up DORIS ALLEN Immunizations Immunization Date Immunization Notes Care Provider Fa [facility] 08-24-2021 COVID-19 Vaccine Moderna - Documentation Purposes Only Christopher Clemencia Other [facility] 01-04-2021 COVID-19 Vaccine Moderna - Documentation Purposes Only Christopher Clemencia Other [facility] 05-20-2020 COVID-19 Moderna Christopher Clemencia Other [facility] 04-14-2020 COVID-19 Moderna Christopher Clemencia Other [facility] Payers Date Payer Category Payer Private Health Insurance [id number] 2018 Unknown [id number] 2. [id number] 1961 Unknown [id number] 2.16.8 [id number] 1961 Unknown [id number] 2.16.8 [id number] 1961 Unknown [id number] 2.16.8 [id number] 1961 Unknown [id number] 2.16.84 [id number] 1961 Unknown [id number] 2.16.8 [id number] Unknown [facility] [id number] Social History Date Type Detail Facility Unknown if ever smoked [facility] Other Sex Assigned At Sex Assigned At Bir th [facility] Other Start: 10-29-2023 Tobacco smoking status NHIS Ex-smoker (finding) [facility] Start: 1960 Sex Assigned At Male [facility] Evaluation note 03-26-2023 Note Date & Type Note Facility 03-26-2023 Evaluation note Encounter Date Diagnosis Assessment Notes Feb, Mild persistent asthma, uncomplicated (ICD-10 - J45.30) Feb, Gastroesophageal reflux disease (ICD-10 - K21.9) [facility] Other Evaluation note 08-13-2022 Note Date & Type Note Facility 08-13-2022 Evaluation note Encounter Date Diagnosis Assessment Notes Jul, Mild persistent asthma, uncomplicated (ICD-10 - J45.30) [facility] Other Evaluation note 05-14-2022 Note Date & Type Note Facility 05-14-2022 Evaluation note Encounter Date Diagnosis Assessment Notes Apr, Gastroesophageal reflux disease (ICD-10 - K21.9) [facility] Other Evaluation note 10-31-2021 Note Date & Type Note Facility 10-31-2021 Evaluation note Encounter Date Diagnosis Assessment Notes Oct, Mild persistent asthma, uncomplicated (ICD-10 - J45.30) Oct, Gastroesophageal reflux disease (ICD-10 - K21.9) Oct, Oropharyngeal candidiasis (ICD-10 - B37.0) [facility] Other History general Narrative - Reported 03-04-2021 Note Date & Type Note Facility 03-04-2021 History general N arrative - Reported Type Medical History asthma Medical History Esophageal reflux Medical History Covid positive 03/04/2021 and 10/18 Surgical History HERNIA Surgical History CYSTECTOMY [facility] Other Evaluation note Note Date & Type Note Facility Evaluation note No Information [facility] Other Evaluation note Note Date & Type Note Facility Evaluation note Diagnosis Onset Date GERD (gastroesophageal reflux disease) acute Mild persistent asthma, uncomplicated acute [facility] Work Phone: Summary Purpose Family History No Family History Records Found Relationship Condition Age at Onset Recorded Date/T xenia brother Unknown Malignant neoplasm Unknown Non-Hodgkin's lymphoma Unknown sister Malignant neoplasm of breast Unknown Advance Directives No Advanced Directives Records Found Advance Directive Response Recorded Date/ Time Advance Directives Yes October 3:17pm Chief Complaint and Reason for Visit Chief Complaint CEA: 1 yr f/u Cough Allergic Rhinitis, Sleep Apnea Reason for Visit GERD (gastroesophage al reflux disease) Mild persistent asthma, uncomplicated Additional Source Comments (unrecognized sect ion and content) No Status Records FoundNo Status Records FoundNo Status Records Found INFORMATION SOURCE (unrecogn ized section and content) DATE CREATED AUTHOR 05/26/2021 [facility] DATE CREATED AUTHOR AUTHOR'S ORGANIZ ATION 11/12/2023 [facility] DATE CREATED AUTHOR AUTHOR'S ORGANIZ ATION 11/13/2023 [facility] REASON FOR VISIT (unrecogniz ed section and content) 1 year f/urefillRefills- Adv airNo [id number] Days Care Teams (unrecognized sec tion and content) Team Status: Active Member Role Status Dates Vin Cuevas DO Primary Care Provider Active Team Status: Inactive Member Role Status Dates Ravin Khanna MD Attending Provider Active Start: October 29, 2023 End: October 29, 2023 Vin Cuevas DO Primary Care Provider Active Start: October 29, 2023 End: October 29, 2023 Goals (unrecognized section and content) Goals may be documented in a n alternate section FOR RECORDS PERTAINING TO PATIENTS WHO ARE [...] BE BASED ON THE PRIMARY CLINICAL RECORDS. [facility]. provides no warranty or guarantee of the accuracy or completeness of information in this document.
--- NOTE | 2023-11-29 09:29 | CT_ITS ---
The [address] [address] Patient Name: MARIANGEL VOSS MRN: [id number] date: 1960 Sex: M Assigned Patient Location: CT Current Patient Location: CT Accession/Order Number: [id number] Exam Date: 11/29/2023 09:22 Report Date: 11/29/2023 14:00 At the request of: MARY ANNA Procedure: CT head/brain wo con EXAMINATION: CT head/brain wo con HISTORY: New Chronic Headache COMPARISON: No relevant comparison available. TECHNIQUE: Axial CT images were obtained without IV contrast. Dose reduction techniques were achieved by using automated exposure control and/or adjustment of mA and/or kV according to patient size and/or use of iterative reconstruction technique. FINDINGS: BRAIN: No edema, hemorrhage, mass, acute infarction, or inappropriate atrophy. CSF SPACES: No hydrocephalus, subarachnoid hemorrhage, or mass. Appropriate for age. SKULL: No fracture, mass, or other significant visible lesion. SINUSES: No significant mucosal thickening or fluid on the limited views. ORBITS: No appreciable abnormality on the limited views. OTHER: Negative CT/CT head/brain wo con IMPRESSION: 1. No abnormal or suspicious findings to account for patient's symptoms. Electronically authenticated by: CHRISTIANNE HOLLY Date: 11/29/2023 14:00
== END 2023-11-29 09:15 | disposition home or self-care (01) ==
LOC: CT 09:16
PROVIDERS: PCP Family Medicine; Visit Provider Family Medicine
DX: R51.9 Headache, unspecified (principal); G89.29 Other chronic pain
CPT/HCPCS: 70450